=== PATIENT | male | born 1970 | race Caucasian/White ===

== ENCOUNTER 2018-10-21 17:25 | Emergency (ER) | payer OTHER, SELFPAY ==
[2018-10-21 17:28] VITALS: BP 134/75; PULSE 77; RESP 18; TEMP 36.8; O2SAT 97; BMI 22.8
--- NOTE | 2018-10-21 17:44 | CT_ITS ---
STUDY: CTA NECK WITH CONTRAST REASON FOR EXAM: Male, 48 years old. Head and neck pain. Dizziness. RADIATION DOSAGE (If Supplied By Facility): CTDIvol = ( 29.24 ) mGy, DLP = ( 1494.97 ) mGycm TECHNIQUE: CT angiography with multi-detector data acquisition was performed from the aortic arch to the skull base following intravenous administration of Isovue 370 100ML IV. MIP images were reconstructed from the axial data set. Post-processing of the angiographic images was performed, with multiplanar reformation and 3D reconstruction. Individualized dose optimization techniques were used for this CT. COMPARISON: None. FINDINGS: AORTIC ARCH: Normal visualized aortic arch. Normal origins of the brachiocephalic, left common carotid, and left subclavian arteries. RIGHT CAROTID ARTERIES: Normal right common carotid artery (CCA). Normal right common carotid bulb. Normal origin of the right internal carotid (ICA) artery without a hemodynamically significant stenosis. Normal visualized cervical portion of the right internal carotid artery. Normal origin of the right external carotid artery (ECA). LEFT CAROTID ARTERIES: Normal left common carotid artery (CCA). Normal left common carotid bulb. Normal origin of the left internal carotid (ICA) artery without a hemodynamically significant stenosis. Normal visualized cervical portion of the left internal carotid artery. Normal origin of the left external carotid artery (ECA). VERTEBRAL ARTERIES: Normal bilateral vertebral arteries. CT/CTA Neck W/WO Contrast IMPRESSION: Normal bilateral cervical carotid and vertebral arteries. Electronically Signed: Amor Doug, at 19:45 EST Tel , Service support ,
--- NOTE | 2018-10-21 17:44 | CT_ITS ---
STUDY: CTA OF THE BRAIN REASON FOR EXAM: Male, 48 years old. Head and neck pain. Dizziness. RADIATION DOSAGE (If Supplied By Facility): CTDIvol = ( 29.24 ) mGy, DLP = ( 1494.97 ) mGycm TECHNIQUE: CT angiography was performed with a multi-detector CT scanner. Data acquisition was obtained from the skull base through the vertex following intravenous administration of Isovue 370 100ML IV. MIP images were reconstructed from the axial data set. Post-processing of the angiographic images was performed, with multiplanar reformation and 3D reconstruction. Individualized dose optimization techniques were used for this CT. COMPARISON: None. FINDINGS: There is no acute bleed or infarct. There is no hydrocephalus. The paranasal sinuses and mastoid air cells are clear. There is no skull fracture. Normal bilateral petrous carotid arteries. Normal right cavernous carotid artery with a normal supraclinoid bifurcation. Normal left cavernous carotid artery with a normal supraclinoid bifurcation. Normal right A1 segments of the anterior cerebral artery. Normal left A1 segments of the anterior cerebral artery. Normal intact anterior communicating artery (ACOM). Normal bilateral A2 segments of the anterior cerebral arteries. Normal right M1 and M2 segments of the middle cerebral arteries, with a normal M1 bifurcation. Normal left M1 and M2 segments of the middle cerebral arteries, with a normal M1 bifurcation. Normal right posterior communicating artery (PCOM). Normal left posterior communicating artery (PCOM). There is a small atretic right vertebral artery with a dominant left vertebral artery. Normal basilar artery with a normal basilar bifurcation. The visualized bilateral superior cerebellar (SCA) arteries are normal. Normal bilateral P1, P2 and visualized P3 segments of the posterior cerebral arteries. There is no demonstrated aneurysm of the [place]. There is no demonstrated abnormality of the visualized brain. CT/CTA Head W/WO Contrast IMPRESSION: No acute intracranial abnormality. Normal [place] without a demonstrated aneurysm or hemodynamically significant stenosis. Electronically Signed: Amor Camacho, at 19:44 EST Tel , Service support ,
--- NOTE | 2018-10-21 17:47 | ED.DCSUM_ITS ---
- ER Visit Summary Date of Service: 10/21/18 Chief Complaint: Headache History of Present Illness: The patient is a 48 M With 2-3-week history of left-sided headache neck pain that radiated into his left arm. He tells me that it is better when he is standing up and stretching his neck and worse when he is lying down. No vision changes no fever or chills. He denies any trauma. He has had this in the past but has resolved on its own. He denies any weakness. Apparently there is a history of dizziness when I asked him about this he says when the pain is at its most the patient feels quite a bit of headache. Physical Examination: Patient is standing he appears in some distress. Moist mucous membranes, no obvious facial deformity No C-spine tenderness but he has paraspinal left neck pain. Regular rate and rhythm without any obvious murmurs Clear lungs bilaterally speaking in full sentences without any obvious respiratory distress Abdomen soft and nontender no guarding or rebound Moves all extremities without any difficulty or pain. He is able to ambulate quite well he is holding both his arms up against resistance he has normal strength and sensation. Skin does not show any obvious rashes or lesions, no trauma. Alert oriented ?3 with no gross focal deficit. Emergency Department Course and Treatment: CTA head and neck are unremarkable, this is chronic but it was the first visit. This may be a neuropathy, his blood work looks unremarkable he does not have a PCP since his old one retired I will refer him I will discharge him with muscle relaxant analgesics for home. Disposition: Discharge stable condition Impression: Neck pain This note was generated with [employer] dictation software. It may contain incorrect words, spelling, and punctuation that were not noted in review of the chart prior to signing ED Disposition - Plan for ED Patient: Disposition: Home or Assisted Living Prescriptions: Hydrocodone Bitart/Apap 5-325 [[place] 5MG-325MG] 1 tab PO Q4H PRN PRN 2 Days #10 tab PRN Reason: Pain Tizanidine HCl 4 mg PO TID #30 cap Referrals: Bonnie Terrell MD [COURTESY STAFF PHYSICIAN] - 3-5 Days
[2018-10-21] MEDS: Morphine 4 MG/ML Syringe IV (18:04)
[2018-10-21] MEDS: Ondansetron 4 MG/2 ML Vial IV (18:05)
[2018-10-21] MEDS: Orphenadrine 60 MG/2 ML Ampul IV (18:05)
[2018-10-21 18:06] VITALS: BP 127/85; PULSE 60; RESP 15; O2SAT 97
[2018-10-21 18:15] LABS: Absolute Lymphocyte Count 3.03 X10^3/ul (0.83-4.51); Absolute Neutrophil Count 3.1 X10^3/uL (2.0-7.7); Basophil# 0.07 X10^3/uL; Eosinophil# 0.35 X10^3/uL; Eosinophils% 4.9 % (0-5); Hematocrit 42.6 % (40-54); Hemoglobin 14.1 g/dl (13.0-16.5); Lymphocyte # 3.03 X10^3/ul (4.0); Lymphocyte % 42.7 % (19-41); Mean Corp Hgb Conc 33.1 g/gl (32-36); Mean Corpuscular Volume 99.8 fL (80-94); Mean Platelet Vol. 9.5 fl (6.2-12.0); Monocyte# 0.53 X10^3/uL; Monocyte% 7.5 % (0-10); Neutrophil # 3.11 X10^3/uL (2.7-7.7); Neutrophil % 43.8 % (47-70); POSITIVE COUNT NO; POSITIVE DIFFERENTIAL NO; POSITIVE MORPHOLOGY NO; Platelet Count 223 K/mm3 (150-450); RBC Distribution Width CV 14.3 % (11.6-14.6); RBC Distribution Width SD 51.9 fl (35.1-43.9); Red Blood Count 4.27 M/mm3 (4.6-6.2); White Blood Count 7.1 K/mm3 (4.4-11.0)
[2018-10-21 18:36] LABS: ALB/GLOB Ratio 1.4 RATIO (0.9-2.4); AST(SGOT) 14 U/L (15-37); Alanine Aminotransfer ALT/SGPT 16 U/L (16-61); Albumin, Serum 4.1 g/dL (3.2-5.0); Alkaline Phosphatase 74 U/L (45-117); Anion Gap 6 (5-15); BUN 9 mg/dL (7-18); BUN/Creat Ratio 9.4 RATIO (10-20); Calcium,Total 8.7 mg/dL (8.5-10.1); Chloride 109 mmol/L (98-107); Creatinine, Serum 0.96 mg/dL (0.70-1.30); EST Glomerular Filtration Rate 89 mL/min (>60); Est Glom Filt Rate - Afr Amer 108 mL/min (>60); Estimated Creatinine Clearance 93.58 ml/min; Globulin 2.9 g/dL (2.2-4.2); Glucose 92 mg/dL (74-106); Potassium 4.3 mmol/L (3.5-5.1); Sodium Level 141 mmol/L (136-145)
[2018-10-21] MEDS: HYDROmorphone 1 MG/ML Syringe IV (18:46)
[2018-10-21 20:11] VITALS: PULSE 189; RESP 31; O2SAT 98
--- NOTE | 2018-10-21 20:13 | ED.DEP ---
ED Disposition - Plan for ED Patient: Disposition: Home or Assisted Living Prescriptions: Hydrocodone Bitart/Apap 5-325 [[place] 5MG-325MG] 1 tab PO Q4H PRN PRN 2 Days #10 tab PRN Reason: Pain Tizanidine HCl 4 mg PO TID #30 cap Referrals: Bonnie Terrell MD [COURTESY STAFF PHYSICIAN] - 3-5 Days
[2018-10-21 20:17] VITALS: BP 121/70; PULSE 65; RESP 14; O2SAT 98
== END 2018-10-21 20:22 | disposition home or self-care (01) ==
PROVIDERS: Emergency Provider Emergency Medicine
DX: M54.2 Cervicalgia (principal)
CPT/HCPCS: 70496; 70498; 80053; 84484; 85025; 96361; 96374; 96375; 99284; J7030; J7040; Q9967; A4216; J2405